=== PATIENT | male | born 1970 | race Caucasian/White ===

== ENCOUNTER → 2019-02-12 | Outpatient (CLI) | payer OTHER ==
--- NOTE | 2019-02-12 14:10 | EXE ---
[facility] [place] [address] STRESS ECHOCARDIOGRAM Name: VAL PEREIRA Room #: REG CL Patricia#: [id number] ������������� Admission: 02/12/19 ������������� Attend Phys: Markel Paul Discharge: ��� ������������� ��� Date of : 68 Date of Service: 02/12/19 1409 �� Report #: [id number] �������� ��������������������������������������������[id number] THIS REPORT FOR: //name// APPROVED REPORT Study performed: 02/12/2019 13:13:16 Exam: Stress Echocardiogram Indication: Palpitations Patient Location: Out-Patient Stress Nurse: Antonella Samson RN Room #: Echo lab 2 Status: routine Ht: 5 ft 11 in HR: 92 bpm BP: 110/78 mmHg Rhythm: NSR Medical History Exercise History: Physically active Procedure The patient underwent an Exercise Stress Test using the Dajuan Protocol. Blood pressure, heart rate, and EKG were monitored. An Echocardiogram was performed by blood or blood bank technician in four stages in quad fashion. At peak stress, four selected images were obtained and placed side by side with resting images for comparison. Stress Test Details Stress Test: Exercise stress testing was performed using a Dajuan protocol. HR Resting HR: 92 bpm Max Heart Rate (APMHR): 171 bpm Max HR Achieved: 171 bpm Target HR (85% APMHR): 145 bpm % of APMHR: 100 Recovery HR: 90 bpm HR response to stress: Normal HR response to stress BP Resting BP: 110/78 mmHg Max BP: 140/82 mmHg Recovery BP: 118/78 mmHg BP response to stress: Normal blood pressure response to stress. ECG [facility] [address] [place] [address] STRESS ECHOCARDIOGRAM Name: VAL PEREIRA Room #: REG CL ShainaShaina#: [id number] ������������� Admission: 02/12/19 ������������� Attend Phys: Markel Paul Discharge: ��� ������������� ��� Date of : 68 Date of Service: 02/12/19 1409 �� Report #: [id number] �������� ��������������������������������������������[id number] Clinical Reason for Termination: Maximal effort Exercise duration: 12 min sec Highest Stage Achieved: Stage 4: 4.2 mph at 16% grade. Exercise capacity: 13.7 METs Overall Exercise Capacity for Age: Good Stress ECG Conclusion 1. SUBJECTIVELY NEGATIVE FOR ISCHEMIA 2. ELECTROCARDIOGRAPHICALLY NEGATIVE FOR ISCHEMIA 3. SATISFACTORY FUNCTIONAL CAPACITY Pre-Stress Echo The resting Echocardiogram showed normal left ventricular contractility with an estimated Ejection Fraction of about 50-55%. Post-Stress Echo The stress Echocardiogram showed normal left ventricular contractility with an estimated Ejection Fraction of about 60-65%. Clinical Normal augmentation of myocardial wall segments using a 17 segment model. Conclusion Clinical Response: Non-ischemic Exercise Capacity: ATISFACTORY Stress ECG Response: Non-ischemic Stress Echo Images: Non-ischemic 1. LOW RISK STUDY No prior study available for comparison. Other Information Study Quality: Good <Conclusion> 1. LOW RISK STUDY ��������������������������������������������� <ELECTRONICALLY SIGNED> ���������������������������������������� By: Markel Wilkins MD ��������������������������������������������� 02/12/19 1409 1409 140 Markel Wilkins MD /INF
== END ==
LOC: CV 12:57
DX: R00.2 Palpitations (principal); R07.9 Chest pain, unspecified; Z91.013 Allergy to seafood

== ENCOUNTER → 2020-04-07 | Outpatient (CLI) | payer OTHER | LOC: CAT 06:42 | DX: R13.19 Other dysphagia (principal); M47.812 Spondylosis without myelopathy or radiculopathy, cervical region; J34.89 Other specified disorders of nose and nasal sinuses ==

== ENCOUNTER → 2021-04-19 | Outpatient (CLI) | payer OTHER ==
[2021-04-19 12:27] LABS: ALBUMIN 3.9 g/dL (3.4-5.0); CALCIUM 9.1 mg/dL (8.5-10.1); POTASSIUM 4.2 mmol/L (3.5-5.1); TOTAL BILIRUBIN 0.6 mg/dL (0.2-1.0); TOTAL PROTEIN 8.2 g/dL (6.4-8.2)
[2021-04-19 12:44] LABS: ABSOLUTE NEUTROPHILS 4.6 thou/uL (1.4-8.2); BASOPHILS 0.7 % (0.0-2.0); EOSINOPHILS 3.5 % (0.0-3.0); HEMATOCRIT 43.4 % (42.0-52.0); HEMOGLOBIN 14.6 gm/dL (14.0-18.0); LYMPHOCYTES 31.8 % (24.0-44.0); MCHC 33.6 g/dL (28.0-37.0); MCV 95.3 fL (80.0-100.0); MONOCYTES 8.2 % (1.0-8.0); PLATELET COUNT 308 thou/uL (150-400); POLYS 55.8 % (36.0-66.0); RBC 4.56 mil/uL (4.50-6.00); WBC 8.3 thou/uL (4.0-11.0)
== END ==
LOC: LAB 11:42
PROVIDERS: ATTEND Family Medicine
DX: R06.09 Other forms of dyspnea (principal)